=== PATIENT | female | born 2000 | race African-American/Black ===

== ENCOUNTER 2024-10-08 05:01 | Emergency (ER) | payer MEDICAID, OTHER ==
[~2024-10-08] VITALS: Ht 162.6 cm; Wt 75.0 kg
[~2024-10-08 05:01] MED LIST: NOCURR
[2024-10-08 06:23] LABS: COVID AG,FIA SOURCE NASAL SWAB
[2024-10-08 07:51] VITALS: TEMP 97.8
[2024-10-08 07:53] LABS: INFLUENZA TYPE A NEGATIVE FOR TYPE A (NEGATIVE); INFLUENZA TYPE B NEGATIVE FOR TYPE B (NEGATIVE); SARS-COV2 (COVID) ANTIGEN,FIA Negative (Negative)
[2024-10-08 10:30] VITALS: BP 143/63; PULSE 86; RESP 18; O2SAT 99
[2024-10-08] MEDS ORDERED: AMOX500C2 PO (11:58)
== END 2024-10-08 12:57 | disposition home or self-care (01) ==
LOC: EMS 05:04
DX: J01.90 Acute sinusitis, unspecified (principal); N93.9 Abnormal uterine and vaginal bleeding, unspecified; Z20.822 Contact with and (suspected) exposure to COVID-19
CPT/HCPCS: 71045; 84703; 87804; 99284

== ENCOUNTER 2025-08-28 08:28 | Emergency (ER) | payer OTHER ==
[~2025-08-28] VITALS: Ht 162.6 cm; Wt 77.3 kg
[~2025-08-28 08:28] MED LIST changes: +AMOX500C2 PO
[2025-08-28] MEDS ORDERED: 0.9% SODIUM CHLORIDE 10 ML SYRINGE IVP PRN (08:45)
[2025-08-28] MEDS: SODIUM CHLORIDE 0.9% 1,800 ML IV ONE (08:59)
[2025-08-28] MEDS: ACETAMINOPHEN 500 MG TABLET PO ONE (08:59)
[2025-08-28] MEDS: CefTRIAXone 1 GM/DEXTROSE 50 ML IV ONE (09:08)
[2025-08-28 09:10] LABS: PLATELET COUNT (AUTO) 364 K/uL (150-450); RED BLOOD CELL COUNT(AUTO) 4.13 MIL/uL (4.00-5.20); RED CELL DISTRIBUTION WIDTH 13.5 % (11.5-14.5); WHITE BLOOD COUNT (AUTO) 15.8 K/uL (4.5-11.0)
[2025-08-28 09:25] LABS: LACTIC ACID 0.9 mmol/L (0.4-2.0)
[2025-08-28 09:29] LABS: SODIUM SERUM 138 mmol/L (136-145)
[2025-08-28 09:30] LABS: CALCIUM, TOTAL 8.9 mg/dL (8.8-10.5); CREATININE 0.91 mg/dL (0.60-1.30); GLOMERULAR FILTR. RATE CALC > 60 mL/min (>60); GLUCOSE,RANDOM 106 mg/dL (70-110); UREA NITROGEN, BLOOD 8 mg/dL (7-18)
[2025-08-28] MEDS ORDERED: ACET-66 PO (10:57)
[2025-08-28] MEDS ORDERED: OMEP-148 PO (10:57)
[2025-08-28] MEDS ORDERED: ONDA-104 PO (10:57)
[2025-08-28 11:18] VITALS: BP 120/65; PULSE 88; RESP 15; TEMP 98.5; O2SAT 96
== END 2025-08-28 11:19 | disposition home or self-care (01) ==
LOC: EMS 08:29
DX: K29.70 Gastritis, unspecified, without bleeding (principal); R10.13 Epigastric pain; Z79.899 Other long term (current) drug therapy
CPT/HCPCS: 99285; 96365; 76705; 71045; 80048; 83605; 84703; 85025; 87040; 36415; 93005; 84145; J0696